=== PATIENT | female | born 1985 | race Caucasian/White ===

== ENCOUNTER 2016-11-18 11:10 | Outpatient (CLI) ==
[2016-04-07 11:39] VITALS: BMI 43.7
[2016-11-18 12:48] LABS: BASOPHILS # (AUTO) 0.1 K/uL (0-0.2); BASOPHILS % (AUTO) 0.8 % (0.0-3.0); EOSINOPHILS # (AUTO) 0.1 K/ul (0.0-0.7); EOSINOPHILS % (AUTO) 0.9 % (0.0-7.0); HEMATOCRIT 38.9 % (37.0-47.0); HEMOGLOBIN 12.7 g/dl (12.0-16.0); IMMATURE GRANULOCYTE % (AUTO) 0.4 % (0.0-5.0); LYMPHOCYTES # (AUTO) 3.2 K/uL (0.60-3.4); LYMPHOCYTES % (AUTO) 31.8 (10.0-50.0); MEAN CORPUSCULAR HEMOGLOBIN 26.6 pg (27.0-31.0); MEAN CORPUSCULAR HGB CONC 32.6 (31.8-35.4); MEAN CORPUSCULAR VOLUME 81.4 fl (81.0-99.0); MONOCYTES # (AUTO) 0.4 K/uL (0.4-2.0); MONOCYTES % (AUTO) 3.5 (0-10); NEUTROPHILS # (AUTO) 6.2 K/ul (2.0-6.9); NEUTROPHILS % (AUTO) 62.6; PLATELET COUNT 521 10^3/uL (140-440); RED BLOOD COUNT 4.78 10^6/ul (4.20-5.40); WHITE BLOOD COUNT 9.92 K/ul (4.6-10.2)
[2016-11-18 13:24] LABS: ALBUMIN 3.4 g/dL (3.4-5.0); ALBUMIN/GLOBULIN RATIO 0.67; BILIRUBIN,TOTAL 0.31 mg/dL (0.00-1.20); BUN/CREATININE RATIO 11.76; CALCIUM 10.2 mg/dL (8.2-10.2); CREATININE 0.85 mg/dL (0.60-1.30); TOTAL PROTEIN 8.5 g/dL (6.4-8.2)
== END 2016-11-18 11:11 | disposition home or self-care (01) ==
LOC: LAB 11:10
PROVIDERS: ATTEND Nurse Practitioner Family
DX: D23.4 Other benign neoplasm of skin of scalp and neck (principal); R03.0 Elevated blood-pressure reading, without diagnosis of hypertension
CPT/HCPCS: 36415; 80053; 80061; 84443; 85025

== ENCOUNTER 2016-11-22 09:01 | Outpatient (CLI) ==
[2016-04-07 11:39] VITALS: BMI 43.7
--- NOTE | 2016-11-22 10:12 | CT ---
EXAM: CT BRAIN HISTORY: Left occipital mass, peripherally (soft tissue). TECHNIQUE: CT brain with intravenous contrast. 5-mm axial sections with Reformations. 75 ml Omnipa que COMPARISON: None FINDINGS: Intracranial structures appear grossly normal. Without unenhanced comparison images, the exam is li mited in some respects, especially regarding any evidence of intracranial hemorrhage. No gross intra cranial hematoma. There is no evidence of recent large vessel distribution ischemic infarction, vent riculomegaly or mass effect. No areas of abnormal intracranial enhancement were seen. There was a marker placed on the cutaneous surface at the region of interest. This marker correspon ds to the left posteriolateral upper neck. At this site, there is a fatty mass measuring 4.4 x 1.4 x 3.1 cm, within the deep subcutaneous fat. No soft tissue components within the fatty mass are foun d. The peripheral soft tissues were otherwise grossly unremarkable. Visualized paranasal sinuses we re clear and the mastoid processes aerated. Skull is intact. 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 This can be monitored clinically for any evidence of change. If change occurs, correlati on with MRI can be made to exclude more rare fatty tumor with malignant components.
== END 2016-11-22 09:02 | disposition home or self-care (01) ==
LOC: RAD 09:01
PROVIDERS: ATTEND Nurse Practitioner Family
DX: D23.4 Other benign neoplasm of skin of scalp and neck (principal)

== ENCOUNTER 2016-11-23 12:40 | Outpatient (CLI) ==
[2016-04-07 11:39] VITALS: BMI 43.7
[2016-11-23 14:08] LABS: PLATELET COUNT 548 10^3/uL (140-440)
[2016-11-23 14:28] LABS: IMMATURE RETIC FRACTION 6.4; RETICULOCYTE % 1.47 %
[2016-11-23 14:40] LABS: ERYTHROCYTE SEDIMENTATION RATE 59 mm/hr (0-20); ESR INTERNAL QC INTERNAL QC VALID
[2016-11-23 15:30] LABS: ALBUMIN 3.7 g/dL (3.4-5.0); ALBUMIN/GLOBULIN RATIO 0.82; ANION GAP 17.1; BILIRUBIN,TOTAL 0.24 mg/dL (0.00-1.20); BUN/CREATININE RATIO 12.65; CALCIUM 10.1 mg/dL (8.2-10.2); CREATININE 0.79 mg/dL (0.60-1.30); FERRITIN 109.87 ng/mL (4.63-204.00); FOLATE 17.3 ng/mL (3.1-20.5); POTASSIUM 4.1 mmol/L (3.5-5.10); TOTAL PROTEIN 8.2 g/dL (6.4-8.2)
[2016-11-24 06:13] LABS: RHEUMATOID ARTHRITIS FACTOR < 10.0 IU/mL (0.0-13.9)
[2016-11-24 08:18] LABS: GAMMA GLUTAMYL TRANSFERASE 61 IU/L (0-60); TRANSFERRIN 367 mg/dL (200-370)
[2016-11-24 15:52] LABS: ANTI-NUCLEAR ANTIBODY SCREEN Negative (Negative)
== END 2016-11-23 12:41 | disposition home or self-care (01) ==
LOC: LAB 12:40
PROVIDERS: ATTEND Nurse Practitioner Family
DX: D47.3 Essential (hemorrhagic) thrombocythemia (principal); R74.8 Abnormal levels of other serum enzymes
CPT/HCPCS: 36415; 80053; 82607; 82728; 82746; 82977; 83540; 83550; 84466; 85045; 85049; 85651; 86038; 86430

== ENCOUNTER 2017-01-04 13:31 | Outpatient (CLI) ==
[2016-04-07 11:39] VITALS: BMI 43.7
[2017-01-04 13:42] LABS: BASOPHILS # (AUTO) 0.1 K/uL (0-0.2); BASOPHILS % (AUTO) 0.6 % (0.0-3.0); EOSINOPHILS # (AUTO) 0.1 K/ul (0.0-0.7); EOSINOPHILS % (AUTO) 1.1 % (0.0-7.0); HEMATOCRIT 39.4 % (37.0-47.0); HEMOGLOBIN 13.1 g/dl (12.0-16.0); IMMATURE GRANULOCYTE % (AUTO) 0.3 % (0.0-5.0); LYMPHOCYTES % (AUTO) 31.7 (10.0-50.0); MEAN CORPUSCULAR HGB CONC 33.2 (31.8-35.4); MEAN CORPUSCULAR VOLUME 81.2 fl (81.0-99.0); MONOCYTES # (AUTO) 0.5 K/uL (0.4-2.0); MONOCYTES % (AUTO) 3.8 (0-10); NEUTROPHILS # (AUTO) 7.8 K/ul (2.0-6.9); NEUTROPHILS % (AUTO) 62.5; PLATELET COUNT 511 10^3/uL (140-440); RED BLOOD COUNT 4.85 10^6/ul (4.20-5.40); WHITE BLOOD COUNT 12.53 K/ul (4.6-10.2)
[2017-01-04 14:32] LABS: ALBUMIN 3.4 g/dL (3.4-5.0); ALBUMIN/GLOBULIN RATIO 0.65; ANION GAP 10.6; BILIRUBIN,TOTAL 0.27 mg/dL (0.00-1.20); CALCIUM 10.2 mg/dL (8.2-10.2); CHOL/HDL RATIO 4.4 (4.5-5.5); CREATININE 0.8 mg/dL (0.60-1.30); POTASSIUM 4.6 mmol/L (3.5-5.10); TOTAL PROTEIN 8.6 g/dL (6.4-8.2)
== END 2017-01-04 13:32 | disposition home or self-care (01) ==
LOC: LAB 13:31
PROVIDERS: ATTEND Nurse Practitioner Family
DX: E78.5 Hyperlipidemia, unspecified (principal); I10 Essential (primary) hypertension; D69.6 Thrombocytopenia, unspecified
CPT/HCPCS: 36415; 80053; 80061; 85025

== ENCOUNTER 2017-06-24 15:15 | Outpatient (CLI) ==
[2016-04-07 11:39] VITALS: BMI 43.7
== END 2017-06-24 15:16 | disposition home or self-care (01) ==
LOC: LAB 15:15
DX: D47.3 Essential (hemorrhagic) thrombocythemia (principal)
CPT/HCPCS: 36415; 85025; 85651

== ENCOUNTER 2017-08-25 11:48 | Outpatient (CLI) ==
[2016-04-07 11:39] VITALS: BMI 43.7
== END 2017-08-25 11:49 | disposition home or self-care (01) ==
LOC: RHC-LAB 11:48
PROVIDERS: ATTEND Emergency Medicine
DX: E78.5 Hyperlipidemia, unspecified (principal); I10 Essential (primary) hypertension
CPT/HCPCS: 36415; 80053; 80061; 84443

== ENCOUNTER 2017-12-13 12:27 | Outpatient (CLI) ==
[2016-04-07 11:39] VITALS: BMI 43.7
== END 2017-12-13 12:28 | disposition home or self-care (01) ==
LOC: LAB 12:27
PROVIDERS: ATTEND Emergency Medicine
DX: E78.5 Hyperlipidemia, unspecified (principal); I10 Essential (primary) hypertension; F32.9 Major depressive disorder, single episode, unspecified
CPT/HCPCS: 36415; 80053; 80061; 84443; 85025

== ENCOUNTER 2018-02-16 11:23 | Outpatient (CLI) ==
[2016-04-07 11:39] VITALS: BMI 43.7
== END 2018-02-16 11:24 | disposition home or self-care (01) ==
LOC: FCC-LAB 11:23
PROVIDERS: ATTEND Family Medicine
DX: D47.3 Essential (hemorrhagic) thrombocythemia (principal); R74.8 Abnormal levels of other serum enzymes; E61.1 Iron deficiency
CPT/HCPCS: 36415; 82728; 82977; 83540; 83550; 85025

== ENCOUNTER 2018-02-21 07:29 | Outpatient (CLI) ==
[2016-04-07 11:39] VITALS: BMI 43.7
--- NOTE | 2018-02-21 08:42 | US ---
EXAM: Ultrasound abdomen limited. HISTORY: Abnormal liver function tests. COMPARISON: None available. TECHNIQUE: Abdominal, real time with image documentation: limited (eg, single organ, quadrant, foll ow-up) FINDINGS: The liver demonstrates increased parenchymal echogenicity without intrahepatic biliary dil atation. Portal venous flow is normal in direction. The gallbladder is without shadowing stones, wa ll thickening or pericholecystic fluid. Common duct measures approximately 0.5 cm. The pancreas is not well seen due to bowel gas. IMPRESSION: Fatty infiltration of the liver.
== END 2018-02-21 07:30 | disposition home or self-care (01) ==
LOC: RAD 07:29
PROVIDERS: ATTEND Family Medicine
DX: R74.8 Abnormal levels of other serum enzymes (principal)
CPT/HCPCS: 36415; 83516